=== PATIENT | male | born 1960 | race Caucasian/White ===

== ENCOUNTER → 2017-07-27 | Outpatient (REF) ==
[~2017-07-27] MED LIST: ASPIRIN 32325 MG/TAB PO; BETAPACE 120MG120 MG PO; BETAPACE 80MG80 MG PO; COUMADIN 5MG5 MG/TAB PO; HYDROCORTISONE30 G1 TP; LISINOPRIL5 MG PO; OXYGEN; OXYGEN IH; PREDNISONE20 MG PO; PROAIR HFA0.09 MG/AC IH; RT ADVAIR 228 DISKUS IH; RT SPIRIVA18 MCG IH
[2017-07-27 12:45] LABS: THYROID STIMULATING HORMONE 5.35 uIU/mL (0.465-4.680)
[2017-07-27 13:28] LABS: PSA-TOTAL 0.85 ng/mL (0-4)
== END ==
LOC: ZLAB.WCH 11:54
PROVIDERS: Internal Medicine
DX: Z01.89 Encounter for other specified special examinations (principal)
CPT/HCPCS: G0103

== ENCOUNTER → 2017-11-28 | Outpatient (REF) ==
[2017-11-28 19:59] LABS: THYROID STIMULATING HORMONE 2.69 uIU/mL (0.465-4.680)
== END ==
LOC: ZLAB.WCH 19:14
PROVIDERS: Internal Medicine
DX: Z01.89 Encounter for other specified special examinations (principal)

== ENCOUNTER 2019-11-09 15:27 | Inpatient (IN) | payer BC ==
[2019-11-09] VITALS (280 sets, daily range): BP systolic 141–156; BP diastolic 72–83; PULSE 69–90; TEMP 98.4–99.4; O2SAT 82–99
[~2019-11-09] VITALS: Ht 182.9 cm; Wt 139.0 kg
--- NOTE | 2019-11-09 15:45 | NUR ---
Patient admitted to ICU3 via EMS stretcher and connected to bedside monitor. RT called for BiPAP since patient transported on CPAP. Full assessment completed. Vital signs stable. Bed in lowest position. Side rails up x3. Call light placed within reach. Patient has no pain, just complains of fatigue and is really only able to answer with "yes" or "no" at this time due to BiPAP.
[2019-11-09] MEDS ORDERED: THEO-24400 MG PO (17:05)
[2019-11-09] MEDS ORDERED: SYNTHROID0.05 MG/TA PO (17:06)
[2019-11-09 17:19] LABS: ARTERIAL BLD GAS O2 SATURATION 91.8 % (92-100); ARTERIAL BLD GAS TCO2 CT 36.5; ARTERIAL BLOOD GAS BASE EXCESS 5.8 (-2-2); ARTERIAL BLOOD GAS HCO3 34.5 meq/L (22-26); ARTERIAL BLOOD GAS PCO2 66.2 mmHg (35-45); ARTERIAL BLOOD GAS PO2 61.2 mmHg (80-100); ARTERIAL BLOOD GAS pH 7.34 (7.35-7.45)
[2019-11-09 18:55] LABS: ALBUMIN 3.6 gm/dL (3.5-5.0); BILIRUBIN,TOTAL 0.7 mg/dL (0.0-1.0); CALCIUM 8.9 mg/dL (8.4-10.2); CREATININE, serum 0.59 (0.66-1.25); POTASSIUM 5.3 mmol/L (3.4-5.0); TOTAL PROTEIN 7.3 gm/dL (6.4-8.2)
--- NOTE | 2019-11-09 19:18 | NUR ---
Bedside shift report given to JENN Bai and care handed over at this time. Patient has had no acute changes, vital signs stable. Call light within reach.
--- NOTE | 2019-11-09 20:08 | NUR ---
Patient resting quietly in bed. Tolerating BiPap well. Patient placed on 5L nasal cannula so that he could eat a snack; currently 94%. Will resume BiPap when ready for bed. Denies any pain or discomfort at this time, all vitals within normal limits. Will continue to monitor.
[2019-11-09 21:53] LABS: HEMATOCRIT 51.6 % (42.0-52.0); HEMOGLOBIN 16.1 g/dl (13.5-18.0); MEAN CELL VOLUME 105 fl (80.0-100.0); MEAN CORPUSCULAR HEMOGLOBIN 33 pg (27.0-31.0); MEAN CORPUSCULAR HGB CONC 31 g/dl (33.0-37.0); MEAN PLATELET VOLUME 11.4 fl (7.4-10.4); PLATELET COUNT 168 K/mm3 (130-400); RED BLOOD COUNT 4.94 M/mm3 (4.20-5.60); REDCELL DISTRIBUTION WIDTH-CV 13.1 % (11.5-14.5)
[2019-11-09 22:21] LABS: BAND 1 % (0-10); LYMPHOCYTE 8 % (20.0-51.0); NEUTROPHILS 90 % (42.0-75.2)
[2019-11-09 22:22] LABS: PLATELET ESTIMATE NORMAL (NORMAL)
[2019-11-09 22:23] LABS: HYPOCHROMIA 2+; TEAR DROP CELLS 2+
[2019-11-09 22:24] LABS: OVALOCYTES 1+
[2019-11-10] VITALS (849 sets, daily range): BP systolic 107–136; BP diastolic 58–81; PULSE 60–92; TEMP 98.2–99.6; O2SAT 83–98
[2019-11-10 05:27] LABS: ARTERIAL BLD GAS O2 SATURATION 93.3 % (92-100); ARTERIAL BLD GAS TCO2 CT 34.5; ARTERIAL BLOOD GAS BASE EXCESS 6.1 (-2-2); ARTERIAL BLOOD GAS HCO3 32.9 meq/L (22-26); ARTERIAL BLOOD GAS PCO2 54.9 mmHg (35-45); ARTERIAL BLOOD GAS PO2 65.8 mmHg (80-100)
[2019-11-10 06:57] LABS: BASO % 0.2 % (0.0-2.0); GRAN # 5.4 (1.4-6.5); GRAN % 87.7 % (42.2-75.2); HEMATOCRIT 49.1 % (42.0-52.0); HEMOGLOBIN 15.5 g/dl (13.5-18.0); LYMPH # 0.5 (1.2-3.4); LYMPH % 8.4 % (20.0-51.0); MEAN CELL VOLUME 104 fl (80.0-100.0); MEAN CORPUSCULAR HEMOGLOBIN 33 pg (27.0-31.0); MEAN CORPUSCULAR HGB CONC 32 g/dl (33.0-37.0); MEAN PLATELET VOLUME 11.3 fl (7.4-10.4); MONO # 0.2 (0.1-0.6); MONO % 3.4 % (1.7-9.3); PLATELET COUNT 169 K/mm3 (130-400); RED BLOOD COUNT 4.72 M/mm3 (4.20-5.60); REDCELL DISTRIBUTION WIDTH-CV 13.1 % (11.5-14.5)
[2019-11-10 07:09] LABS: CALCIUM 9.2 mg/dL (8.4-10.2); CREATININE, serum 0.73 (0.66-1.25); POTASSIUM 4.4 mmol/L (3.4-5.0)
--- NOTE | 2019-11-10 09:16 | NUR ---
The patient is on COVID precautions and pending results. He did not answer his room phone. SW contacted the patient's , Kari (h.ph#[phone], c.ph#[phone]), to complete intake. The patient lives in [place] with his . Kari reports that the patient is independent with ADLs and does not use any assistance devices. [facility] The patient's PCP is Dr. Miller Lowry and he receives his medications at [facility] in [facility]. Kari reports no difficulties obtaining his meds. The patient does not have advanced directives completed. Kari reports that she has no concerns with the patient returning back home upon discharge. SYMONE to continue to follow.
--- NOTE | 2019-11-10 19:10 | NUR ---
RECEIVED REPORT FROM JENN UGALDE. PT SITTING UP IN BED WATCHING TV ON 5L HFNC. CALL LIGHT WITHIN REACH. URINAL WITHIN REACH. VSS. NO ACUTE S/S OF RESP DISTRESS NOTED AT THIS TIME.
--- NOTE | 2019-11-10 19:29 | NUR ---
Hand-off report given to JENN Sterling.
[2019-11-11] VITALS (205 sets, daily range): BP systolic 120–144; BP diastolic 47–74; PULSE 56–71; TEMP 97.9–98.5; O2SAT 81–97
[2019-11-11 06:13] LABS: BASO % 0.1 % (0.0-2.0); GRAN # 8.5 (1.4-6.5); GRAN % 88.2 % (42.2-75.2); HEMOGLOBIN 15.2 g/dl (13.5-18.0); LYMPH # 0.6 (1.2-3.4); LYMPH % 6.2 % (20.0-51.0); MEAN CELL VOLUME 102 fl (80.0-100.0); MEAN CORPUSCULAR HEMOGLOBIN 32 pg (27.0-31.0); MEAN CORPUSCULAR HGB CONC 32 g/dl (33.0-37.0); MEAN PLATELET VOLUME 11.4 fl (7.4-10.4); MONO # 0.5 (0.1-0.6); MONO % 4.8 % (1.7-9.3); PLATELET COUNT 174 K/mm3 (130-400); RED BLOOD COUNT 4.71 M/mm3 (4.20-5.60)
[2019-11-11 06:25] LABS: CALCIUM 9.1 mg/dL (8.4-10.2); CREATININE, serum 0.67 (0.66-1.25); POTASSIUM 4.7 mmol/L (3.4-5.0)
--- NOTE | 2019-11-11 10:09 | NUR ---
report called to JENN Figueroa.
--- NOTE | 2019-11-11 10:24 | NUR ---
PT transfered to [facility] via wheelchair and assist of this RN. PT stable and tolerated transport well with 5LPM via high flow NC. PT care taken over by JENN Figueroa.
--- NOTE | 2019-11-11 11:40 | NUR ---
The patient's COVID results came back negative. The patient is to transfer up to the medical floor today. He remains on 5 liters of supplemental oxygen. SW to continue to follow.
--- NOTE | 2019-11-11 20:32 | NUR ---
At time of assessment, patient is alert and oriented, lungs are clear, heart sounds regular/normal. Edema is present in bilateral lower extremities with 3+ pitting; Bilat lower extremities are discolored. Patient wears 5L oz via nasal cannula and experience SOA with exertion. No pain is present at this time.
[2019-11-12 04:51] VITALS: BP 128/67; PULSE 55; TEMP 98.3
[2019-11-12 08:34] VITALS: BP 114/42; PULSE 76; TEMP 36.4
[2019-11-12 12:16] VITALS: BP 126/61; PULSE 63; TEMP 98.2
[2019-11-12] MEDS ORDERED: NICODERM C14 MG/PATC TD (13:40)
[2019-11-12] MEDS ORDERED: PREDNISONE10 MG PO (13:42)
[2019-11-12] MEDS ORDERED: RT ADVAIR 128 DISKUS IH (13:43)
[2019-11-12] MEDS ORDERED: ZITHROMAX 250M250 MG PO (13:44)
--- NOTE | 2019-11-12 14:33 | NUR ---
SYMONE notified that patient will require home oxygen. SYMONE reviewed RT assessment and patient will need 3 liters, continuous. SYMONE met with patient who advised he already has a CPAP and nocturnal oxygen from [place] [facility]. Patient would like oxygen ordered from [facility]. SYMONE faxed signed order, facesheet, H&P, and RT assessment to Starla at [facility] and advised that discharge would be this afternoon. No additional needs at this time.
--- NOTE | 2019-11-12 17:47 | NUR ---
DC TO HOME ACCOMPANIED BY @ [id number]. PRINTED DC INSTRUCTIONS REVIEWED WITH PATIENT AND . ALL QUESTIONS ANSWERED DURING REVIEW.
== END 2019-11-12 17:30 | disposition home or self-care (01) | DRG 190 ==
LOC: IMCU 15:27 → MEDICAL 15:54 → ICU 15:54 → MEDICAL 11-11 11:42
PROVIDERS: ADMIT Student in an Organized Health Care Education/Training Program
PROC: 5A09457 Assistance with Respiratory Ventilation, 24-96 Consecutive Hours, Continuous Positive Airway Pressure (ICD-10-PCS; principal; 2019-11-09)
DX: J44.1 Chronic obstructive pulmonary disease with (acute) exacerbation (principal); J96.01 Acute respiratory failure with hypoxia; J96.02 Acute respiratory failure with hypercapnia; E66.2 Morbid (severe) obesity with alveolar hypoventilation; Z20.828 Contact with and (suspected) exposure to other viral communicable diseases; E03.9 Hypothyroidism, unspecified; I10 Essential (primary) hypertension; I48.91 Unspecified atrial fibrillation; I27.20 Pulmonary hypertension, unspecified; F17.210 Nicotine dependence, cigarettes, uncomplicated; Z79.82 Long term (current) use of aspirin
CPT/HCPCS: 99223-AI; 99232-AI; 99233-AI; 99239; J1650; J2930; J7512

== ENCOUNTER → 2019-12-23 | Outpatient (CLI) | payer BC ==
[~2019-12-23] MED LIST changes: +NICODERM C14 MG/PATC TD; +PREDNISONE10 MG PO; +RT ADVAIR 128 DISKUS IH; +SYNTHROID0.05 MG/TA PO; +THEO-24400 MG PO; +ZITHROMAX 250M250 MG PO
[2019-12-23 08:40] LABS: ARTERIAL BLD GAS O2 SATURATION 98.3 % (92-100); ARTERIAL BLD GAS TCO2 CT 23.3; ARTERIAL BLOOD GAS BASE EXCESS -1.4 (-2-2); ARTERIAL BLOOD GAS HCO3 22.2 meq/L (22-26); ARTERIAL BLOOD GAS PCO2 34.3 mmHg (35-45); ARTERIAL BLOOD GAS PO2 109.7 mmHg (80-100); ARTERIAL BLOOD GAS pH 7.43 (7.35-7.45)
== END ==
LOC: COL.PUL 08:00
PROVIDERS: Internal Medicine Pulmonary Disease
DX: J96.11 Chronic respiratory failure with hypoxia (principal); J96.12 Chronic respiratory failure with hypercapnia; F17.210 Nicotine dependence, cigarettes, uncomplicated

== ENCOUNTER → 2020-04-19 | Outpatient (REF) | LOC: ZLAB.WCH 16:02 | DX: Z01.89 Encounter for other specified special examinations (principal) ==